=== PATIENT | female | born 1990 | race African-American/Black ===

== ENCOUNTER 2017-09-07 23:06 | Emergency (ER) | payer MEDICAID ==
[~2017-09-07] VITALS: Ht 154.9 cm; Wt 58.2 kg
[2017-09-08 00:10] LABS: INFLUENZA TYPE A NEGATIVE FOR TYPE A (NEGATIVE)
[2017-09-08 00:11] LABS: INFLUENZA TYPE B POSITIVE FOR TYPE B (NEGATIVE)
[2017-09-08] MEDS ORDERED: KETOROLAC TROMETHAMINE 30 MG/ML VIAL IM ONE (02:30)
[2017-09-08 03:49] VITALS: BP 116/71
== END 2017-09-08 03:50 | disposition home or self-care (01) ==
LOC: EMS 23:07
DX: J11.1 Influenza due to unidentified influenza virus with other respiratory manifestations (principal); F17.210 Nicotine dependence, cigarettes, uncomplicated
CPT/HCPCS: 71045; 87804; 96372; 99285; J1885

== ENCOUNTER 2018-02-16 22:29 | Emergency (ER) | payer MEDICAID ==
[~2018-02-16] VITALS: Ht 152.4 cm; Wt 54.5 kg
[2018-02-17] MEDS ORDERED: DiphenhydrAMINE HCL 25 MG CAPSULE PO ONE
[2018-02-17 00:37] VITALS: BP 128/75
== END 2018-02-17 00:38 | disposition home or self-care (01) ==
LOC: EMS 22:30
DX: R20.2 Paresthesia of skin (principal); R21 Rash and other nonspecific skin eruption; F17.210 Nicotine dependence, cigarettes, uncomplicated
CPT/HCPCS: 99282

== ENCOUNTER 2023-09-15 15:14 | Emergency (ER) | payer MEDICAID ==
[~2023-09-15] VITALS: Ht 160 cm; Wt 62.7 kg
[2023-09-15 15:18] VITALS: BP 127/79; PULSE 106; RESP 16; TEMP 99.7
[2023-09-15] MEDS ORDERED: DIPH25CA85 PO (15:21)
[2023-09-15 15:39] LABS: COVID AG,FIA SOURCE NASAL SWAB
[2023-09-15 15:53] LABS: SARS-COV2 (COVID) ANTIGEN,FIA Negative (Negative)
[2023-09-15 15:54] LABS: INFLUENZA TYPE A NEGATIVE FOR TYPE A (NEGATIVE); INFLUENZA TYPE B NEGATIVE FOR TYPE B (NEGATIVE)
[2023-09-15] MEDS ORDERED: IBUPROFEN 600 MG TABLET PO ONE (16:15)
[2023-09-15] MEDS ORDERED: AMOX500C2 PO (16:23)
== END 2023-09-15 17:15 | disposition home or self-care (01) ==
LOC: EMS 15:15
DX: H66.42 Suppurative otitis media, unspecified, left ear (principal); F17.210 Nicotine dependence, cigarettes, uncomplicated; Z98.890 Other specified postprocedural states; Z20.822 Contact with and (suspected) exposure to COVID-19
CPT/HCPCS: 87804; 99283